=== PATIENT | female | born 1950 | race Caucasian/White ===

== ENCOUNTER 2019-12-15 07:40 | Outpatient (CLI) | payer MEDICARE, SELFPAY ==
--- NOTE | ~2019-12-15 | MM_ITS ---
EXAMINATION: MM screening [facility] BI w denise HISTORY: Screening mammogram TECHNIQUE: Craniocaudal and mediolateral oblique 3-D tomosynthesis images were obtained and synthetic 2-D images were generated. CAD analysis was submitted and interpreted. COMPARISON: 12/09/2018, 11/24/2017, 10/02/2016 BREAST PARENCHYMAL COMPOSITION: There are scattered areas of fibroglandular density. FINDINGS: There is no evidence of suspicious mass, calcification, or architectural distortion to sugg est malignancy in either breast. There has been no suspicious interval change. IMPRESSION: 1. No mammographic evidence of malignancy. 2. Recommend routine screening mammography in one year. BI-RADS Category 1: Negative Reviewed, dictated and finalized at location A.
--- NOTE | ~2019-12-15 | DEXA_ITS ---
Bone Density Report Name: Spring Do Age: 69 Sex: Female Ethnicity: White Date of : 1950 Indication: postmenopausal; height loss; prior fracture; Referring Provider: Ephraim Ferguson Study: Bone densitometry was performed. Exam Date: December 15, 2019 Accession number: [id number] Bone Density: Region BMD T-score Z-score Classification AP Spine (L1-L4) 1.056 0.1 2.1 Normal Femoral Neck (Left) 0.626 -2.0 -0.3 Osteopenia Total Hip (Left) 0.821 -1.0 0.4 Normal Total Hip Bilateral Avg 0.797 -1.2 0.2 Osteopenia Femoral Neck (Right) 0.572 -2.5 -0.8 Osteoporosis Total Hip (Right) 0.773 -1.4 0.0 Osteopenia World Health Organization criteria for BMD impression classify patients as: Normal (T-score at or above -1.0), Osteopenia (T-score between -1.0 and -2.5), or Osteoporosis (T-score at or below -2.5). 10-year Fracture Risk: FRAX not reported because: Some T-score for Spine Total or Hip Total or Femoral Neck at or below -2.5 Treated for osteoporosis Clinical Information Provided by Patient: Has had a low trauma fracture Is being treated for osteoporosis Has used the following medications: Fosamax (i.e. alendronate), Vitamin D, Calcium Patient maximum height was 64 Menopause Age: 48 No regular weight bearing exercise Onset of menses at age 12 Number of children 2 Impression: The patient has established osteoporosis, based on the Right Femoral Neck T-score and the existence of a prior fracture. The patient has risk factors, including: previous fracture. Discussion: It is important to ask patients whether they are taking their medications and to encourage continued and appropriate compliance with their osteoporosis therapies to reduce fracture risk. It is also important to review their risk factors and encourage appropriate calcium and vitamin D intakes, exercise, fall prevention and other lifestyle measures. Follow-Up: Consider a repeat BMD and Vertebral Fracture Assessment (VFA) exam in 2 years or sooner if medically necessary, to reassess this patient's status. Reported by: [facility] on 12/15/2019 8:12:00 AM. Reviewed, dictated and finalized at location Gurwinder SHEN
== END 2019-12-15 07:41 | disposition home or self-care (01) ==
PROVIDERS: PCP Family Medicine; Visit Provider Physician Assistant
DX: M81.0 Age-related osteoporosis without current pathological fracture (principal); Z12.31 Encounter for screening mammogram for malignant neoplasm of breast; M85.852 Other specified disorders of bone density and structure, left thigh; M85.851 Other specified disorders of bone density and structure, right thigh
CPT/HCPCS: 77063; 77067; 77080

== ENCOUNTER → 2020-10-14 02:14 | Outpatient (CLI) | payer MEDICARE, SELFPAY ==
[2020-10-14 19:19] LABS: SARS-CoV-2 RNA PCR Negative
== END ==
PROVIDERS: PCP Family Medicine; Visit Provider Internal Medicine Gastroenterology
DX: Z01.812 Encounter for preprocedural laboratory examination (principal); Z20.822 Contact with and (suspected) exposure to COVID-19
CPT/HCPCS: C9803; U0003; U0005

== ENCOUNTER 2020-10-17 00:33 | Day surgery (SDC) | payer MEDICARE, SELFPAY ==
[2020-10-08 10:17] VITALS: BMI 32.2
[2020-10-17 06:47] VITALS: BP 123/73; RESP 18; TEMP 36.3; O2SAT 96; BMI 33.2
[2020-10-17] MEDS: LACTATED RINGERS 1,000 ML 150 ML IV CONT (06:52)
--- NOTE | 2020-10-17 07:21 | WPDANESEPPF ---
Anes - Initial Pre Proc Eval Procedure: Operation Date: 10/17/20 08:00 Proposed Procedures p Screening Colonoscopy - Malick Steiner DO Date/Time: 10/17/20 07:21 Surgeon: Malick Steiner DO Pre Op Diagnosis: neoplasm screening, hx colon polyps Patient Data Age: 70 Gender: F Height: 5 ft 3 in Weight: 85 kg Last Vital Signs Temp 36.3 C L 10/17/20 06:47 Resp 18 10/17/20 06:47 BP 123/73 10/17/20 06:47 Pulse Ox 96 10/17/20 06:47 Allergies Allergy/AdvReac Type Severity Reaction Status Date / Time No Known Allergies Allergy Unknown Verified 10/17/20 06:44 Home Medications Medication Instructions Recorded Confirmed Type biotin 5,000 mcg disintegrating 5,000 mcg PO DAILY tablet 10/06/19 10/17/20 History tablet aspirin [Adult Aspirin] 81 mg PO DAILY 10/08/20 10/17/20 History calcium citrate-vitamin D3 1 tablet PO DAILY 10/08/20 10/17/20 History [Citracal + D Maximum] elderberry fruit [Elderberry] 400 mg PO DAILY 10/08/20 10/17/20 History multivitamin [One A Day Vitamin] 1 tablet PO DAILY 10/08/20 10/17/20 History omega-3 fatty acids-vitamin E 1 cap PO DAILY 10/08/20 10/17/20 History [Fish Oil] vitamin J26-[id number] acid 1 tablet SUBLINGUAL DAILY 10/08/20 10/17/20 History Patient hx anesthesia problems: none Family hx anesthesia problems: none PMFSH Past Medical History Medical History Abnormal bone density screening (~04/23/17) osteopenia Abnormal colonoscopy (~07/11/15) colon polyp, internal hemorrhoids, diverticulosis, repeat in 5 years Ankle fracture, right Arm fracture, left Arthritis Mammogram normal (~12/09/18) Pneumonia Right wrist fracture Surgical History Surgical History History of hysterectomy (~2010) History of open reduction and internal fixation (ORIF) procedure Right wrist Hx of cholecystectomy (~2010) Family History Family History Mother Diabetes mellitus Grandparent Diabetes mellitus Father , age 65 Emphysema of lung Sibling , age 50 Agent orange exposure Liver disease Grandparent Gangrene Other Family history of cardiovascular disease Social History Social History Smoking status: Never smoker Alcohol intake: current Substance use: never Living arrangements: alone Gender identity (if verbalized by the patient): Female Spiritual care concerns: No Anes - Eval Final PreProcedure Day of Procedure 10/17/20 07:21 Patient weight: obese Heart: regular rate and rhythm Lungs: clear to auscultation Airway: Mallampati scale class 1 Neurological: alert and oriented Last oral intake: >/= 8 hours ASA classification: II Emergent: no Anesthetic plan: proceed Anesthesia type and monitoring: general GIVS and standard monitoring Informed Consent: The patient's anesthetic plan and its attendant risks and benefits were discussed with the patient/family/POA. Questions were solicited and answers provided to the satisfaction of the patient/family/POA.
--- NOTE | 2020-10-17 07:52 | WPDGICN ---
GI Consult Note Consult date/time: 10/17/20 07:52 HPI: Reason for visit is colonoscopy. Impression: Screening and surveillance colonoscopy. The patient has history of colon polyps. Low bone mass. Obesity. Recommendation: Colonoscopy. History: This very pleasant lady is negative GI review systems. She has a history of colon polyps. She is here for screening and surveillance colonoscopy. Physical examination: General: very pleasant patient in no acute distress. HEENT: Head was normocephalic sclerae is clear mouth without masses neck was supple. Heart: Rate rhythm regular without S3 or S4. Lungs: CTA. Abdomen: Soft with no guarding or rigidity. Bowel sounds were active. Neurologic: Cranial nerves 2 through 12 intact. No focal defects. No clonus. Musculoskeletal system: Revealed no joint tenderness or swelling no muscle atrophy. Extremities: Reveal no significant edema. Skin: Warm and dry with normal turgor. Mental status: intact. Patient is alert and oriented. Review of Systems Review of Systems: All systems reviewed & are unremarkable except as noted in HPI and below PMFSH Past Medical History Medical History Abnormal bone density screening (~04/23/17) osteopenia Abnormal colonoscopy (~07/11/15) colon polyp, internal hemorrhoids, diverticulosis, repeat in 5 years Ankle fracture, right Arm fracture, left Arthritis Mammogram normal (~12/09/18) Pneumonia Right wrist fracture Surgical History Surgical History History of hysterectomy (~2010) History of open reduction and internal fixation (ORIF) procedure Right wrist Hx of cholecystectomy (~2010) Family History Family History Mother Diabetes mellitus Grandparent Diabetes mellitus Father , age 65 Emphysema of lung Sibling , age 50 Agent orange exposure Liver disease Grandparent Gangrene Other Family history of cardiovascular disease Social History Social History Smoking status: Never smoker Alcohol intake: current Substance use: never Living arrangements: alone Gender identity (if verbalized by the patient): Female Spiritual care concerns: No Meds Home Medications and Allergies Home Medications Medication Instructions Recorded Confirmed Type biotin 5,000 mcg disintegrating 5,000 mcg PO DAILY tablet 10/06/19 10/17/20 History tablet aspirin [Adult Aspirin] 81 mg PO DAILY 10/08/20 10/17/20 History calcium citrate-vitamin D3 1 tablet PO DAILY 10/08/20 10/17/20 History [Citracal + D Maximum] elderberry fruit [Elderberry] 400 mg PO DAILY 10/08/20 10/17/20 History multivitamin [One A Day Vitamin] 1 tablet PO DAILY 10/08/20 10/17/20 History omega-3 fatty acids-vitamin E 1 cap PO DAILY 10/08/20 10/17/20 History [Fish Oil] vitamin T50-dedlr acid 1 tablet SUBLINGUAL DAILY 10/08/20 10/17/20 History Allergies Allergy/AdvReac Type Severity Reaction Status Date / Time No Known Allergies Allergy Unknown Verified 10/17/20 06:44 Vital Signs Vital Signs - 24 hr 10/17/20 06:47 Temperature 36.3 C L Respiratory Rate 18 Blood Pressure 123/73 Pulse Oximetry 96
[2020-10-17 08:15] VITALS: BP 108/71; PULSE 68; RESP 21; O2SAT 98
[2020-10-17 08:21] VITALS: BP 121/66; PULSE 65; RESP 17; O2SAT 100
[2020-10-17 08:31] VITALS: BP 125/68; PULSE 60; RESP 18; O2SAT 100
== END 2020-10-17 08:42 | disposition home or self-care (01) ==
PROVIDERS: PCP Family Medicine; Visit Provider Internal Medicine Gastroenterology
PROC: 0DJD8ZZ Inspection of Lower Intestinal Tract, Via Natural or Artificial Opening Endoscopic (ICD-10-PCS; CPT 45378; principal; 2020-10-17 08:00)
DX: Z12.11 Encounter for screening for malignant neoplasm of colon (principal); K57.30 Diverticulosis of large intestine without perforation or abscess without bleeding; K64.8 Other hemorrhoids; Z86.010 Personal history of colon polyps; E66.9 Obesity, unspecified; Z68.33 Body mass index [BMI] 33.0-33.9, adult; Z79.82 Long term (current) use of aspirin
CPT/HCPCS: G0105; J2704; J7120

== ENCOUNTER → 2021-01-24 10:37 | Outpatient (CLI) | payer MEDICARE, SELFPAY ==
--- NOTE | ~2021-01-24 | MM_ITS ---
EXAMINATION: MM screening [facility] BI w denise HISTORY: Screening mammogram TECHNIQUE: Craniocaudal and mediolateral oblique 3-D tomosynthesis images were obtained and synthetic 2-D images were generated. CAD analysis was submitted and interpreted. COMPARISON: 12/15/2019, 12/09/2018, 11/24/2017 BREAST PARENCHYMAL COMPOSITION: There are scattered areas of fibroglandular density. FINDINGS: There is no evidence of suspicious mass, calcification, or architectural distortion to sugg est malignancy in either breast. There has been no suspicious interval change. IMPRESSION: 1. No mammographic evidence of malignancy. 2. Recommend routine screening mammography in one year. BI-RADS Category 1: Negative Reviewed, dictated and finalized at location A.
== END ==
PROVIDERS: PCP Family Medicine; Visit Provider Family Medicine
DX: Z12.31 Encounter for screening mammogram for malignant neoplasm of breast (principal)
CPT/HCPCS: 77063; 77067

== ENCOUNTER → 2022-02-27 10:06 | Outpatient (CLI) | payer MEDICARE, SELFPAY ==
--- NOTE | ~2022-02-27 | DEXA_ITS ---
Bone Density Report Name: DALI GARDINER Age: 72 Sex: Female Ethnicity: White Date of : 1950 Indication: osteopenia; height loss; prior fracture; postmenopausal Referring Provider: Ephraim Ferguson Study: Bone densitometry was performed. Exam Date: February 27, 2022 Accession number: [id number] Bone Density: Region BMD T-score Z-score Classification AP Spine (L1-L4) 1.038 -0.1 2.1 Normal Femoral Neck (Left) 0.618 -2.1 -0.2 Osteopenia Total Hip (Left) 0.807 -1.1 0.5 Osteopenia Femoral Neck (Right) 0.577 -2.5 -0.6 Osteoporosis Total Hip (Right) 0.776 -1.4 0.2 Osteopenia Total Hip Mean 0.792 -1.3 0.4 Osteopenia World Health Organization criteria for BMD impression classify patients as: Normal (T-score at or above -1.0), Osteopenia (T-score between -1.0 and -2.5), or Osteoporosis (T-score at or below -2.5). 10-year Fracture Risk: FRAX not reported because: Some T-score for Spine Total or Hip Total or Femoral Neck at or below -2.5 Previous Exams: Region Exam Age BMD T-score BMD Change BMD Change Date g/cm2 vs Baseline vs Previous AP Spine(L1-L4) 02/27/2022 72 1.038 -0.1 0.084* 0.024* 04/23/2017 67 1.014 -0.3 0.061* 0.061* 04/05/2015 65 0.953 -0.9 Total Hip(Left) 02/27/2022 72 0.807 -1.1 0.062* 0.024 04/23/2017 67 0.783 -1.3 0.038* 0.038* 04/05/2015 65 0.745 -1.6 Total Hip(Right) 02/27/2022 72 0.776 -1.4 0.025 -0.022 04/23/2017 67 0.798 -1.2 0.047* 0.047* 04/05/2015 65 0.751 -1.6 *Denotes significance at 95% confidence level, LSC for AP Spine = 0.022 g/cm2, LSC for Total Hip = 0.027 g/cm2 Clinical Information Provided by Patient: Has had a low trauma fracture Has used the following medications: Calcium Patient maximum height was 63.5 Menopause Age: 44 No regular weight bearing exercise Drinks caffeinated beverages Onset of menses at age 11 Number of children 2 Impression: The patient has established osteoporosis, based on the Right Femoral Neck T-score and the existence of a prior fracture. The patient has risk factors, including: previous fracture. No significant bone loss was observed. Discussion: HIGH RISK OF FRACTURE. BONE DENSITY IS UNDESIRABLY LOW AT ONE OR MORE SKELETAL SITES, CONSISTENT WITH POSTMENOPAUSAL OSTEOPOROSIS. This patient's lowest T-score, in a patient who has previously fractured,
--- NOTE | ~2022-02-27 | MM_ITS ---
EXAMINATION: MM screening [facility] BI w denise HISTORY: Screening mammogram TECHNIQUE: Craniocaudal and mediolateral oblique 3-D tomosynthesis images were obtained and synthetic 2-D images were generated. CAD analysis was submitted and interpreted. COMPARISON: 01/24/2021, 12/15/2019, [id number] BREAST PARENCHYMAL COMPOSITION: There are scattered areas of fibroglandular density. FINDINGS: There is no suspicious mass, calcification, or architectural distortion to suggest malignan cy in either breast. There has been no suspicious interval change. IMPRESSION: 1. No mammographic evidence of malignancy. 2. Recommend routine screening mammography in one year. BI-RADS Category 1: Negative Reviewed, dictated and finalized at location A.
== END ==
PROVIDERS: PCP Family Medicine; Visit Provider Physician Assistant
DX: Z12.31 Encounter for screening mammogram for malignant neoplasm of breast (principal); M81.0 Age-related osteoporosis without current pathological fracture; M85.852 Other specified disorders of bone density and structure, left thigh; M85.851 Other specified disorders of bone density and structure, right thigh
CPT/HCPCS: 77063; 77067; 77080

== ENCOUNTER → 2023-05-04 11:18 | Outpatient (CLI) | payer MEDICARE, SELFPAY ==
--- NOTE | ~2023-05-04 | MM_ITS ---
EXAMINATION: MM screening [facility] BI w denise HISTORY: Screening mammogram TECHNIQUE: Craniocaudal and mediolateral oblique 3-D tomosynthesis images were obtained and synthetic 2-D images were generated. CAD analysis was submitted and interpreted. COMPARISON: 02/27/2022, 01/24/2021, 12/15/2019 BREAST PARENCHYMAL COMPOSITION: There are scattered areas of fibroglandular density. FINDINGS: There is no evidence of suspicious mass, calcification, or architectural distortion to sugg est malignancy in either breast. There has been no suspicious interval change. IMPRESSION: 1. No mammographic evidence of malignancy. 2. Recommend routine screening mammography in one year. BI-RADS Category 1: Negative Reviewed, dictated and finalized at location A. OPERATOR HELPER
== END ==
PROVIDERS: PCP Family Medicine; Visit Provider Nurse Practitioner Family
DX: Z12.31 Encounter for screening mammogram for malignant neoplasm of breast (principal)
CPT/HCPCS: 77063; 77067

== ENCOUNTER 2024-12-28 13:12 | Outpatient (CLI) | payer MEDICARE, SELFPAY ==
--- NOTE | ~2024-12-28 | XR_ITS ---
EXAM/ PROCEDURE: XR hip LT min 2V - 12/28/2024 13:30 CDT HISTORY: 74 years old Female with M16.12 - Unilateral primary osteoarthritis, left hip GROIN COMPARISON: None available TECHNIQUE: Two view(s) FINDINGS/ IMPRESSION: There are no fractures or dislocations.Joint space narrowing, subchondral sclerosis, subchondral cyst formation and osteophyte formation, compatible with mild osteoarthritis. Reviewed, dictated and finalized at location A.
--- NOTE | ~2024-12-28 | XR_ITS ---
XR lumbar spine min 4V 12/28/2024 13:56 Indication: Osteoarthritis. Procedure: 5 views lumbar spine Comparison: No prior studies for comparison. Findings: There is severe multilevel facet hypertrophy from L3-4 through L5-S1. There is grade 1 dege nerative spondylolisthesis at L4-5 and L5-S1. Vertebral body heights are maintained. There is disc na rrowing at all lumbar levels. Sacral foramen are symmetric. There are cholecystectomy clips. Impression: 1: Severe lumbar spondylosis. Reviewed, dictated and finalized at location A. Impression: 1: Severe lumbar spondylosis.
--- OUTSIDE RECORDS SUMMARY | 2024-12-28 13:17 | XMS_ITS | Clinical Summary ---
Author Organization [facility] Address [address], [facility] [address] [place] [address] Phone Care Team Providers Care Exterior Work Helper Name Role Phone Dieter Timmons MD Primary Care Provider [phone] Malick Steiner DO Unavailable [phone] Allergies No known active allergies Medications polyethylene glycol (MIRALAX) Powder Mix the entire bottle with 64 oz of a clear liquid. Use as directed by the office for colonoscopy prep. 255 g 0 6 Active Multiple Vitamins-Mineral s (ONE DAILY MULTIVITAMIN WOMEN PO) Take by mouth daily. Active Biotin 10 MG Tablet Take 10,000 mg by mouth daily. Active Cyanocobalamin (VITAMIN B-12) 5000 MCG Lozenge Take 5,000 mcg by mouth daily. Active [place]-3 Fatty Acids (FISH OIL) 1200 MG Capsule Take 1,200 mg by mouth daily. Active Calcium-Phosphor us-Vitamin D (CITRACAL +D3 PO) Take by mouth daily. Active alendronate (FOSAMAX) 70 MG Tablet Take 70 mg by mouth every 7 days. Active Aspirin 81 MG Tablet Take 81 mg by mouth daily. 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 Gender Identity Not on file Sexual Orientation Not on file Plan of Treatment Health Maintenance Due Date Last Done Comments Hepatitis C Virus (HCV) Screening 1950 TdaP Immunization 1950 Cologuard 02/19/1996 Immunochemical Fecal Occult Blood 02/19/1996 Zoster Immunization (2 of 3) 07/09/2014 05/14/2014 Pneumococcal Immunization (50+ years) (2 of 2 - PCV) 09/17/2018 09/17/2017 SARS-COV-2 Immunization (3 - season) 2024 09/29/2020, 09/07/2020 Influenza Immunization (#1) 2025 10/0 10/2019, 05/12/2019, 04/15/2018, Additional history exists Respiratory Syncytial Virus (RSV) Immunization (Adult) (1 - 1-dose 75+ series) 2026 Colonoscopy 10/17/2030 10/17/2020, 07/11/2015 Colorectal Cancer Screening 10/17/2030 Pneumococcal Immunization Combined Discontinued 09/17/2017 Hepatitis B Immunization Aged Out No longer eligible based on patient's age to complete this topic Human Papillomavirus (HPV) Immunization Aged Out No longer eligible based on patient's age to complete this topic Meningococcal Immunization (ACWY) Aged Out No longer eligible based on patient's age to complete this topic Rotavirus Immunization Aged Out No lo nger eligible based on patient's age to complete this topic Procedures Procedure Name Priority Date/Time Associated Diagnosis Comments COLONOSCOPY Routine 10/17/2020 from Last 3 Months or Most Recently Relevant to Health Maintenance Results * COLONOSCOPY (10/17/2020) Malick Steiner DO PROCEDURE/MINOR SURGICAL ORDERA BLES Final Result from Last 3 Months or Most Recently Relevant to Health Maintenance Insurance MEDICARE [employer] S[employer]IOR [employer]LEMENTAL Care Teams Exterior Work Helper Relationship Specialty Start Date End Date Dieter Timmons MD [address] [place] [address] [place] [id number] PCP - General Family Medicine 07/11/15 Malick Steiner DO [address] [place] [address] [address] [place] [address] Gastroenterology 07/11/15
== END 2024-12-28 13:13 | disposition home or self-care (01) ==
PROVIDERS: PCP Family Medicine; Visit Provider Family Medicine
DX: M16.12 Unilateral primary osteoarthritis, left hip (principal); M43.06 Spondylolysis, lumbar region
CPT/HCPCS: 72110; 73502

== ENCOUNTER 2025-03-20 10:04 | Outpatient (CLI) | payer MEDICARE, SELFPAY ==
--- OUTSIDE RECORDS SUMMARY | 2025-03-20 11:34 | XMS_ITS | Clinical Summary ---
Author Organization [facility] Address [address], [facility] [address] [place] [address] Phone Care Team Providers Care Jackspooler Name Role Phone Dieter Timmons MD Primary Care Provider [phone] Malick Steiner DO Unavailable [phone] Allergies No known active allergies Medications [...] Take 5,000 mcg by mouth daily. 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 Gender Identity Not on file Sexual Orientation Not on file Plan of Treatment Health Maintenance Due Date Last Done Comments Hepatitis C Virus (HCV) Screening 1950 TdaP Immunization 1950 Cologuard 02/19/1996 Immunochemical Fecal Occult Blood 02/19/1996 Zoster Immunization (2 of 3) 07/09/2014 05/14/2014 Medicare Initial AWV [id number] 02/05/2017 Pneumococcal Immunization (50+ years) (2 of 2 - PCV) 09/17/2018 09/17/2017 Influenza Immunization (#1) 02/05/202510/2019, 05/12/2019, 04/15/2018, Additional history exists SARS-COV-2 Immunization (3 - season) 2025 09/29/2020, 09/07/2020 Respiratory Syncytial Virus (RSV) Immunization (Adult) (1 [...] Insurance MEDICARE [employer] SENIOR SU[employer]LEMENTAL Care Teams Jackspooler Relationship Specialty Start Date End Date Dieter Timmons MD [address] [place] [address] [address] [place] [address] PCP - General Family Medicine 07/11/15 Malick Steiner DO [address] [place] [address] [address] [place] [address] Gastroenterology 07/11/15
[2025-03-20 12:52] LABS: Hematocrit 41.6 % (37.0-47.0); Hemoglobin 13.4 g/dL (12.0-15.0); Immature Granulocyte Percent A 0.0 % (0-0.5); Lymphocytes Absolute Auto 1.59 K/mm3 (0.9-3.2); Mean Corpuscular HGB Conc 32.2 g/dl (32-36); Mean Corpuscular Hemoglobin 29.6 pg (26-34); Mean Corpuscular Volume 91.8 fl (80-100); Nucleated Red Blood Cells Absolute Auto 0.000 K/mm3 (0.0-0.012); Nucleated Red Blood Cells Perc 0.0 % (0.0-0.2); Platelet Count Result 249 k/mm3 (150-375); Red Blood Count 4.53 M/mm3 (4.2-5.4); White Blood Count 4.8 K/mm3 (4.5-10.0)
[2025-03-20 13:08] LABS: Alanine Aminotransferase 14 U/L (6-35); Albumin Level 4.4 g/dL (3.5-5.1); Alkaline Phosphatase 69 U/L (38-126); Anion Gap 8 mmol/L (4-12); Aspartate Amino Transferase 37 U/L (14-36); Bilirubin,Total 0.7 mg/dL (0.2-1.3); Blood Urea Nitrogen 10 mg/dL (7-17); Calcium 9.7 mg/dL (8.4-10.2); Carbon Dioxide 27 mmol/L (22-30); Chloride 104 mmol/L (98-107); Cholesterol 229 mg/dL (0-200); Estimated Glomerular Filt Rate > 60; Glucose 97 mg/dL (65-110); HDL Direct 62 mg/dL; Sodium 139 mmol/L (137-145); Total Protein 7.6 g/dL (6.3-8.2); Triglycerides 131 mg/dL (<150)
[2025-03-20 13:15] LABS: Potassium 4.6 mmol/L (3.4-5.0)
[2025-03-20 13:41] LABS: Thyroid Stimulating Hormone 0.077 uIU/mL (0.465-4.680)
== END 2025-03-20 10:05 | disposition home or self-care (01) ==
LOC: ANHGOSHLAB 10:05
PROVIDERS: PCP Family Medicine; Visit Provider Nurse Practitioner Family
DX: E78.2 Mixed hyperlipidemia (principal); M81.0 Age-related osteoporosis without current pathological fracture; E55.9 Vitamin D deficiency, unspecified; G50.0 Trigeminal neuralgia; Z92.29 Personal history of other drug therapy
CPT/HCPCS: 36415; 80053; 80061; 82306; 84443; 85025